=== PATIENT | female | born 1980 | race American Indian/Alaskan Native ===

== ENCOUNTER 2017-05-10 11:00 | Emergency (ER) | payer BC ==
[2017-05-10 12:06] VITALS: BMI 22.2
[2017-05-10 12:33] LABS: BASO % 0.3 % (0.0-2.0); EOS # 0.3 K/uL (0.0-0.7); EOS % 2.9 % (0.0-4.0); HEMOGLOBIN 11.3 g/dL (12.0-16.0); LYMPH # 1.4 K/uL (1.0-4.3); LYMPH % 14.6 % (20.0-40.0); MEAN CELL VOLUME 77.8 fl (81.0-99.0); MEAN CORPUSCULAR HEMOGLOBIN 26.1 pg (27.0-31.0); MEAN CORPUSCULAR HGB CONC 33.6 g/dL (33.0-37.0); MEAN PLATELET VOLUME 9.2 fl (7.2-11.7); MONO # 0.7 K/uL (0.0-0.8); MONO % 7.8 % (0.0-10.0); NEUT # 7.1 K/uL (1.8-7.0); NEUT % 74.4 % (50.0-75.0); NRBC % 0.4 % (0.0-0.0); RBC 4.32 Mil/uL (3.80-5.20); RED CELL DISTRIBUTION WIDTH 21.2 % (11.5-14.5); WHITE BLOOD COUNT 9.5 K/uL (4.8-10.8)
[2017-05-10 12:38] LABS: SQUAMOUS EPITHIAL 6 /hpf (0-5); URINE BACTERIA RARE (<OCC); URINE BILIRUBIN NEGATIVE (NEGATIVE); URINE BLOOD NEGATIVE (NEGATIVE); URINE CLARITY CLOUDY (Clear); URINE COLOR YELLOW (YELLOW); URINE GLUCOSE (UA) NEG (Normal); URINE HYALINE CAST 0-2 /hpf (0-2); URINE LEUKOCYTE ESTERASE TRACE Leu/uL (Negative); URINE NITRATE NEGATIVE (NEGATIVE); URINE PROTEIN NEGATIVE (NEGATIVE); URINE UROBILINOGEN 0.2-1.0 mg/dL (0.2-1.0)
[2017-05-10 12:46] LABS: ALB/GLOB RATIO 0.9 (1.0-2.1); ALBUMIN 3.8 g/dL (3.5-5.0); ALT/SGPT 28 U/L (9-52); AST/SGOT 20 U/L (14-36); BLOOD UREA NITROGEN 9 mg/dl (7-17); CALCIUM 9.4 mg/dL (8.4-10.2); GFR AFRICAN-AMERICAN > 60; GFR NON-AFRICAN AMERICAN > 60; URIC ACID 5.3 mg/Dl (2.2-7.5)
--- NOTE | 2017-05-10 13:28 | OBHP ---
Datetime: 05/10/2017 12:24 IP Adm Impression: , intrauterine IP Admit Plan: Observation/Evaluation Admit Comment, IP Provider: 37 yo at 23+1 wks w/ chronic HTN w/ elevated BP in the office, 1 88/122/ in the office. Pt denies WHITT, vision changes, abdominal pain, N/V, dysuria, VB, ctxns, and LO F. Pt reports FM. PMH: Chronic HTN PSH: c/s x 2 L/s b/l ovarian cystectomy Meds: Labetolol 200 BID All: NKDA POB hx: 2014 primary c/s for previa at 36 wks, male, 4#8 2014 repeat c/s at 37 wks, male, 5#14.7 Fam hx: Both parents have HTN Soc hx: Pt denies tobacco, alcohol, and illicit drug use [employer]ist hx: regular periods, denies STDs, denies abn paps PE: AFVSS, BP 143/96 Gen'l: pt appears comfortbale lying in stretcher Heart: RRR Chest: lungs CTA b/l Abd: soft, NT, gravid Ext: NT, DTRs 1-2+ VE: Deferred A/P 37 yo at 23+1 wks w/ CHTN w/ elevated BPs in office today, denies sx PEC BPs range 143-155/88-97 PEC labs nl Will increase labetolol dose to 300 BID and pt to f/u in office on ., 05/13/2017 Pt told to do [address] Nathan Pt given pre-eclampsia precautions Extremities - PN: Normal Abdomen - PN: Normal Back - PN: Normal Lungs - PN: Normal Heart - PN: Normal Thyroid - PN: Not Done Neurologic - PN: Normal General - PN: Normal FHR - Baseline A Provider: 140's EGA AdmitDate IP: 23.1 Vital Signs Provider: Reviewed IP Chief Complaint: Signs/Symptoms Gestational HTN NICHD Variability Prov Fetus A: Moderate 6-25bpm DTRs - PN: Normal
--- NOTE | 2017-05-10 14:36 | OBDCSUM ---
Datetime: 05/10/2017 13:26 Discharged to, Provider: Home Follow up at, Provider: Dr. Nathan Disch Instr Activity: Normal activity Disch Instr Diet: Regular Discharge Instructions, Provider: Routine instructions given Discharge Time: 05/10/2017 13:26 Follow up in weeks, Provider: 05/13/2017 Disch Referrals: None Discharge Diagnosis Prov Other: Hypertension at 23+ weeks
[2017-05-10 18:13] VITALS: BP 145/80; PULSE 75; RESP 18; TEMP 98.1; O2SAT 100
[2017-05-11] MEDS ORDERED: Sod Polystyrene Sulf 15 gm/60 ml Susp ONE (18:15)
== END 2017-05-10 13:26 | disposition home or self-care (01) ==
LOC: H.EROB2 11:00 → H.EROB 11:49 → H.EROB2 13:26
DX: O26.92 Pregnancy related conditions, unspecified, second trimester (principal); I10 Essential (primary) hypertension; Z3A.23 23 weeks gestation of pregnancy; Z87.59 Personal history of other complications of pregnancy, childbirth and the puerperium